=== PATIENT | female | born 1990 | race African-American/Black ===

== ENCOUNTER 2018-07-17 11:07 | Outpatient (CLI) | payer MEDICAID ==
--- NOTE | 2018-07-17 14:07 | ULT ---
OB ULTRASOUND: COMPARISON: None. HISTORY: female. Evaluate size, dates, and anatomy. TECHNIQUE: Multiplanar, jewell scale, and color Doppler images were obtained in a transabdominal ultrasound. FINDINGS: A single live intrauterine is seen with a heart rate of 147 b.p.m. A survey was perf ormed which is unremarkable. The head, intracranial structures, heart, stomach, kidneys, umbilical c ord, umbilical cord insertion, spine, face, and extremities were evaluated and were unremarkable. Es timated weight is 869 gm. Average age of the fetus based off today's examination is 26 weeks 2 days. The following measurements were taken and dates based off these measurements are as follows: BPD 6.55 cm, 26 weeks 4 days HC 24.53 cm, 26 weeks 5 days AC 21.44 cm, 26 weeks 0 days FL 4.69 cm, 25 weeks 5 days The placenta is anterior in location without evidence of placenta previa. Amniotic fluid volume is s ubjectively within normal limits. The cervix is normal in length. IMPRESSION: Single live intrauterine with estimated age of 26 weeks 2 days. POS: [facility]
== END 2018-07-17 11:08 | disposition home or self-care (01) ==
LOC: BICULT 11:07
PROVIDERS: ATTEND Family Medicine
DX: Z34.82 Encounter for supervision of other normal pregnancy, second trimester (principal); Z3A.26 26 weeks gestation of pregnancy
CPT/HCPCS: 76805

== ENCOUNTER 2018-10-15 08:55 | Inpatient (IN) | payer OTHER ==
[2018-10-15] MEDS ORDERED: Lactated Ringer's 1,000 ML IV SCH ×2 (12:09)
[2018-10-15] MEDS ORDERED: Butorphanol Tartrate 1 MG/ML VIAL SLOW IVP PRN (12:09)
[2018-10-15] MEDS ORDERED: Acetaminophen/Codeine 30-300mg Tablet PO PRN ×2 (12:09)
[2018-10-15] MEDS ORDERED: Lidocaine 1% (PF) 30 ML VIAL SC PRN (12:09)
[2018-10-15] MEDS ORDERED: Promethazine HCl 25 MG/ML VIAL IM PRN ×2 (12:09→13:46)
[2018-10-15] MEDS ORDERED: Ibuprofen 800 MG TAB PO PRN (12:09)
[2018-10-15] MEDS ORDERED: Ondansetron PF 4 MG/2 ML Vial IVP PRN ×3 (12:09→18:22)
[2018-10-15] MEDS ORDERED: NS w/ Oxytocin 10 units 500 ML IV SCH (12:09)
[2018-10-15] MEDS ORDERED: hydrALAZINE 20 MG/ML VIAL SLOW IVP PRN ×2 (12:09→18:22)
[2018-10-15 12:44] LABS: Hemoglobin 10.1 g/dL (12.0-16.0); Mean Corpuscular HGB CONC 31.9 g/dL (32.0-36.0); Mean Corpuscular Hemoglobin 26.6 pg (27.0-31.0); Mean Corpuscular Volume 83.3 fL (78.0-98.0); Platelet Count 215 thou/uL (130-400); RBC Distribution Width 12.8 % (11.5-14.5)
[2018-10-15] MEDS ORDERED: Fentanyl 4 mcg/Bup 0.1% Cadd 100 ML ONE (12:59)
[2018-10-15 13:26] LABS: Syphilis Antibody Nonreactive (Nonreactive); Syphilis Antibody Index 0.12 S/CO (<1.00 Non-Reactive)
[2018-10-15 13:27] LABS: HBSAg Index 0.26 S/CO (0-0.99); Hep B Surf Ag Non-Reactive S/CO (NonReactive)
[2018-10-15] MEDS ORDERED: Acetaminophen 325 MG TAB PO PRN (13:46)
[2018-10-15] MEDS ORDERED: Naloxone HCl 0.4 mg/ml Vial IVP PRN ×2 (13:46)
[2018-10-15] MEDS ORDERED: Lactated Ringer's 500 ML IV PRN (13:46)
[2018-10-15] MEDS ORDERED: diphenhydrAMINE 50 MG/ML VIAL IVP PRN (13:46)
[2018-10-15] MEDS ORDERED: ePHEDrine/0.9% NaCl/PF SYRINGE 50 mg/10 ml SLOW IVP PRN (13:46)
[2018-10-15] MEDS ORDERED: Fentanyl 4 mcg/Bupivacaine 0.1% Cassette 100 ML EPIDURAL SCH (14:00)
[2018-10-15] MEDS ORDERED: Communication Order-Pharmacy FS SCH (14:00)
[2018-10-15 15:20] VITALS: BMI 31.5
[2018-10-15] MEDS: NS / Oxytocin 40 units/1000ml 1,000 ML IV PRN ×2 (16:50→17:27)
[2018-10-15] MEDS ORDERED: Bupivacaine/Epinephrine 0.25% 30 ML VIAL ONE (18:00)
[2018-10-15] MEDS ORDERED: Milk Of Magnesia 30 ML UDCUP PO PRN (18:22)
[2018-10-15] MEDS ORDERED: diphenhydrAMINE 25 MG CAP PO PRN (18:22)
[2018-10-15] MEDS ORDERED: NS / Oxytocin 40 units/1000ml 1,000 ML IV SCH (18:22)
[2018-10-15] MEDS ORDERED: Bisacodyl 10 MG SUPP PR PRN (18:22)
[2018-10-15] MEDS ORDERED: Benzocaine-Menthol 82.5 ML CAN TOP PRN (18:22)
[2018-10-15] MEDS ORDERED: HYDROcodone/Acetaminophen 5/325 mg Tablet PO PRN ×2 (18:22)
[2018-10-15] MEDS ORDERED: Ferrous Sulfate 325 MG TAB PO SCH (19:00)
[2018-10-15] MEDS ORDERED: Adacel (T-DAP) 0.5 ML SYRINGE IM ONE (21:00)
[2018-10-15] MEDS: Ibuprofen 800 MG TAB PO SCH (21:39)
[2018-10-15] MEDS: Docusate Calcium (SURFAK) 240 MG CAP PO SCH (21:39)
[2018-10-16] MEDS: Ibuprofen 800 MG TAB PO SCH ×3 (06:02→18:14)
[2018-10-16] MEDS ORDERED: Prenatal Vitamin 1 TAB PO SCH (09:00)
[2018-10-16] MEDS: Ferrous Sulfate 325 MG TAB PO SCH ×2 (09:23→18:11)
[2018-10-16] MEDS: Docusate Calcium (SURFAK) 240 MG CAP PO SCH (09:51)
[2018-10-16 12:07] VITALS: BP 106/61; TEMP 98.5
[2018-10-16] MEDS ORDERED: Measles/Mumps/Rubella 10 MCG/0.5 ML VIAL SC ONE (18:15)
== END 2018-10-16 18:55 | disposition home or self-care (01) | DRG 807 ==
LOC: L&D/OP 08:55 → L&D 13:02 → 3SW 10-16 06:43
PROVIDERS: ADMIT Family Medicine; ATTEND Family Medicine
PROC: 10E0XZZ Delivery of Products of Conception, External Approach (ICD-10-PCS; principal; 2018-10-15)
DX: O80 Encounter for full-term uncomplicated delivery (principal); Z37.0 Single live birth; Z3A.38 38 weeks gestation of pregnancy
CPT/HCPCS: 36415; 51702; 85027; 86780; 86850; 86900; 86901; 87340; 90707; 99285